=== PATIENT | female | born 1995 | race Caucasian/White ===

== ENCOUNTER 2017-09-12 12:17 | Emergency (ER) | payer SELFPAY ==
[2017-09-12 12:31] VITALS: BP 118/60; PULSE 76; O2SAT 100
--- NOTE | 2017-09-12 12:41 | ERPHSYRPT ---
- History of Present Illness Time Seen by Provider: 09/12/17 12:34 Source: patient Exam Limitations: no limitations Patient Subjective Stated Complaint: PT REPORTS HAVING A PRODUCTIVE COUGH BEGINNING LAST WEEK-STATES THAT SHE HAS OVERALL BODY ACHES-STATES THAT SHE FEELS SOB-PT IS 17 WKS Triage Nursing Assessment: PT PINK WARM ET [id number] IN COMPLETE SENTENCES WITH EASE-TALKATIVE WITH NO RETRACTIONS OR RESP DISTRESS NOTED-LUNGS CLEAR ET EQUAL BILATERALLY Physician History: 22-year-old white female arrives with complaint of a cough she states for several weeks worse for the past 3-4 days, feels short of breath at times she states she has a cough productive of dark sputum. She has no fevers. She does state that she aches all over. Patient states she is 17 weeks . Past medical history cardiomyopathy. Past surgical history includes . Social history patient denies tobacco use Timing/Duration: week(s) (symptoms for 3-4 weeks worse past 3-4 days) Severity: moderate Modifying Factors: Improves With: nothing Associated Symptoms: shortness of breath, cough, malaise, No nausea, No vomiting , No abdominal pain, No heartburn, No diaphoresis, No chills, No chest pain, No fever, No headaches, No loss of appetite, No rash, No syncope, No seizure, No weakness Allergies/Adverse Reactions: No Known Drug Allergies Allergy (Unverified 09/12/17 12:31) Home Medications: Alprazolam 0.5 mg [xanAX 0.5 MG] 0.5 mg PO UD 09/12/17 [History] Metoprolol Tartrate 50 mg [Lopressor 50 MG] 50 mg PO BID 09/12/17 [History ] Hx Tetanus, Diphtheria Vaccination/Date Given: Yes Hx Influenza Vaccination/Date Given: No Hx Pneumococcal Vaccination/Date Given: No Immunizations Up to Date: Yes - Review of Systems Constitutional: No Fever, No Chills Eyes: No Symptoms Ears, Nose, & Throat: No Symptoms, No Ear Pain, No Ear Discharge, No Hearing Changes, No Tinnitus, No Nose Pain, No Nose Congestion, No Nose Discharge, No Sinus Drainage, No Epistaxis, No Mouth Pain, No Mouth Swelling, No Loose Teeth, No Throat Pain, No Throat Swelling, No Hoarse, No Painful Swallowing, No Snoring Respiratory: Cough, Dyspnea Cardiac: No Chest Pain, No Edema, No Syncope Abdominal/Gastrointestinal: No Abdominal Pain, No Nausea, No Vomiting, No Diarrhea Genitourinary Symptoms: No Dysuria Musculoskeletal: Myalgias Skin: No Rash Neurological: No Dizziness, No Focal Weakness, No Sensory Changes Psychological: No Symptoms Endocrine: No Symptoms All Other Systems: Reviewed and Negative - Past Medical History Pertinent Past Medical History: Yes Cardiac History: Other - Past Surgical History Past Surgical History: Yes Female Surgical History: Section - Social History Smoking Status: Never smoker Exposure to second hand smoke: No Drug Use: none Patient Lives Alone: No - Female History Hx Now: Yes - Nursing Vital Signs Nursing Vital Signs: Initial Vital Signs Temperature 97.9 F 09/12/17 12:26 Pulse Rate 76 09/12/17 12:26 Respiratory Rate 20 09/12/17 12:26 Blood Pressure 118/60 09/12/17 12:26 O2 Sat by Pulse Oximetry 100 09/12/17 12:26 Pain Scale Pain Intensity 9 - Physical Exam General Appearance: no apparent distress, alert Eye Exam: PERRL/EOMI, eyes nml inspection Ears, Nose, Throat Exam: normal ENT inspection, TMs normal, pharynx normal, moist mucous membranes Neck Exam: normal inspection, non-tender, supple, full range of motion Respiratory Exam: normal breath sounds, lungs clear, No respiratory distress Cardiovascular Exam: regular rate/rhythm, normal heart sounds, normal peripheral pulses Gastrointestinal/Abdomen Exam: soft, normal bowel sounds, No tenderness, No mass Back Exam: normal inspection, normal range of motion, No CVA tenderness, No vertebral tenderness Extremity Exam: normal inspection, normal range of motion, pelvis stable Neurologic Exam: alert, oriented x 3, cooperative, big data lead II-XII nml as tested, normal mood/affect, nml cerebellar function, nml station & gait, sensation nml, No motor deficits Skin Exam: normal color, warm, dry, No rash Lymphatic Exam: No adenopathy SpO2 Interpretation: normal (100%) SpO2: 100 Oxygen Delivery: Room Air - Course Nursing assessment & vital signs reviewed: Yes EKG Interpreted by Me: RATE (63 bpm), Sinus Rhythm, NORMAL AXIS, Other (EKG: Sinus rhythm, 63 bpm, normal axis, no acute ST or T wave changes) Ordered Tests: Active Orders 24 hr Category Date Time Status EKG-ER Only STAT Care 09/12/17 12:37 Active Heart Tones-ED STAT Care 09/12/17 12:37 Active - Progress Progress: improved Progress Note: 09/12/17 12:53 22-year-old white female with history of cardiomyopathy who states that she is 17 weeks states that she's been having a cough productive of dark sputum symptoms for 3-4 weeks which has been worse past 3-4 days she states she has general myalgias no fevers no vomiting. On physical examination patient does not appear in this acute distress lungs are clear pulse oximetry is 100%. EKG normal sinus rhythm [address] or T wave changes normal axis. Fetall heart tones are checked by the patient's nurse in our 140. Will go ahead and place patient on Zithromax. She is to take plenty of fluids Tylenol every 4 hours as needed for pain follow- up with her family doctor or band manager. - Departure Time of Disposition: 12:55 Departure Disposition: Home Clinical Impression: Bronchitis Condition: Fair Critical Care Time: No Additional Instructions: Return home. Plenty of fluids. Tylenol every 4 hours as needed for pain. Zithromax Z-ADRIANO as directed. Follow-up with your band manager or family . Return for acute distress or for severe symptoms. Prescriptions: Azithromycin 250 mg [Zithromax 250 MG TABLET] 0 mg PO ZPACK #6 tablet
== END 2017-09-12 13:00 | disposition home or self-care (01) ==
LOC: ED 12:17
DX: J40 Bronchitis, not specified as acute or chronic (principal)
CPT/HCPCS: 93005; 99283

== ENCOUNTER 2020-10-03 19:49 | Emergency (ER) | payer OTHER ==
[2020-10-03 20:10] VITALS: O2SAT 98
--- NOTE | 2020-10-03 20:11 | ERPHSYRPT ---
- History of Present Illness Time Seen by Provider: 10/03/20 20:06 Source: patient Exam Limitations: no limitations Physician History: 25 yr old female with lac right radial wrist with pocket knife, tet reported UTD. she tried superglu at home but did not work , this was 2 hours ago; removed glue by RN using bacitracin. neurovasc and tendon fxn intact; nontender underlying bone. Occurred: just prior to arrival Method of Injury: incised Quality: constant Severity of Pain-Max: mild Severity of Pain-Current: mild Extremities Pain Location: wrist: right Modifying Factors: Improves With: movement Associated Symptoms: none Allergies/Adverse Reactions: No Known Drug Allergies Allergy (Unverified 09/12/17 12:31) Home Medications: Alprazolam [Xanax Xr] 1 mg PO DAILY 10/03/20 [History] Escitalopram Oxalate [Lexapro] 20 mg PO DAILY 10/03/20 [History] Lamotrigine 100 mg [lamICTAL 100MG TABLET] 100 mg PO DAILY 10/03/20 [History] Hx Tetanus, Diphtheria Vaccination/Date Given: Yes Hx Influenza Vaccination/Date Given: No Hx Pneumococcal Vaccination/Date Given: No - Review of Systems Constitutional: No Fever, No Chills Eyes: No Symptoms Ears, Nose, & Throat: No Symptoms Respiratory: No Cough, No Dyspnea Cardiac: No Chest Pain, No Edema, No Syncope Abdominal/Gastrointestinal: No Abdominal Pain, No Nausea, No Vomiting, No Diarrhea Genitourinary Symptoms: No Dysuria Musculoskeletal: No Back Pain, No Neck Pain Skin: Other (lac), No Rash Neurological: No Dizziness, No Focal Weakness, No Sensory Changes Psychological: No Symptoms Endocrine: No Symptoms Hematologic/Lymphatic: No Symptoms Immunological/Allergic: No Symptoms All Other Systems: Reviewed and Negative - Past Medical History Pertinent Past Medical History: Yes Cardiac History: Other - Past Surgical History Past Surgical History: Yes Female Surgical History: Section - Social History Smoking Status: Never smoker Exposure to second hand smoke: No Drug Use: none Patient Lives Alone: No - Nursing Vital Signs Nursing Vital Signs: Initial Vital Signs Temperature 97.0 F 10/03/20 19:56 Pulse Rate 82 10/03/20 19:56 Respiratory Rate 16 10/03/20 19:56 Blood Pressure 132/95 10/03/20 19:56 O2 Sat by Pulse Oximetry 98 10/03/20 19:56 Pain Scale Pain Intensity 1 - Physical Exam General Appearance: no apparent distress, alert Eyes, Ears, Nose, Throat Exam: moist mucous membranes Neck Exam: non-tender, supple Cardiovascular/Respiratory Exam: chest non-tender, normal breath sounds, regular rate/rhythm, no respiratory distress Abdominal Exam: non-tender, No guarding Back Exam: normal inspection, normal range of motion, No vertebral tenderness Shoulder Exam: normal inspection, non-tender, no evidence of injury, normal ROM Elbow/Forearm Exam: normal inspection, non-tender, no evidence of injury, normal ROM Wrist Exam: normal inspection, non-tender, normal ROM Hand Exam: normal inspection, non-tender, no evidence of injury, normal ROM DTR - Upper Extremity Exam: bicep (R): 2+, bicep (L): 2+, tricep (R): 2+, tricep (L): 2+ Neuro/Tendon Exam: normal sensation, normal motor functions, normal tendon functions Mental Status Exam: alert, oriented x 3, cooperative Skin Exam: normal color, warm, dry, laceration (right radial wrist) Procedures - Laceration/Wound Repair Right Wrist Wound Location: Right, wrist Wound Length (cm): 2 Wound's Depth, Shape: linear Wound Explored: super glue removed in prep Irrigated: Yes (50 cc NS ) Hibiclens Prep: Yes Anesthesia: local, 1% Lidocaine Volume Anesthetic (ccs): 3 Wound Debrided: minimal Wound Repaired With: sutures Suture Size/Type: 4-0, nylon Number of Sutures: 2 Layer Closure?: No Sterile Dressing Applied?: Yes Splint Applied?: No Sling Applied?: No - Course Nursing assessment & vital signs reviewed: Yes Ordered Tests: Active Orders 24 hr Category Date Time Status Sutures STAT Care 10/03/20 20:11 Active - Progress Progress: improved, re-examined Counseled pt/family regarding: diagnosis, need for follow-up - Departure Departure Disposition: Home Clinical Impression: Laceration Condition: Good Critical Care Time: No Referrals: KEILA ISABEL [Primary Care Provider] - Instructions: Laceration Repair With Stitches (DC) Additional Instructions: sutures may be removed by your in 10 days ; return meantime if any signs of infection or other concerns. followup your blood pressure also with , it was a little high on first presentation here , but may have been related to the event. Prescriptions: Mupirocin [Bactroban OINTMENT] 22 gm TP BID #1 tube
[2020-10-03 20:41] VITALS: BP 118/74; PULSE 74
== END 2020-10-03 20:41 | disposition home or self-care (01) ==
LOC: ED 19:49
DX: S61.511A Laceration without foreign body of right wrist, initial encounter (principal); W26.0XXA Contact with knife, initial encounter
CPT/HCPCS: 12001; 99283

== ENCOUNTER 2023-01-05 19:14 | Emergency (ER) | payer OTHER ==
--- NOTE | 2023-01-05 19:31 | ERPHSYRPT ---
- History of Present Illness Time Seen by Provider: 01/05/23 19:31 Source: patient Exam Limitations: no limitations Physician History: C/o abdominal pain x 2-3 weeks. Worse since pelvic exam at [facility]ERT[facility]IED [facility] TE[facility] office today. Location: RLQ Constant. Described as: sharp, stabbing Radiates to back Not associated w/ food, decreased appetite, +N/V Sexually active w/ one partner Started Ozempic in September, lost 50lbs since Denies hematuria, dysuria, increased frequency Timing/Duration: week(s) (3), worse Quality: sharp, stabbing Severity of Pain-Max: severe Severity of Pain-Current: severe Modifying Factors: Improves With: nothing. Worsens With: movement Associated Symptoms: nausea, vomiting, No fever, No chills Previous symptoms: no prior history Allergies/Adverse Reactions: codeine Adverse Reaction (Verified 01/05/23 19:25) Stomach Pain Home Medications: Alprazolam [Xanax Xr] 1 mg PO DAILY 10/03/20 [History] Escitalopram Oxalate [Lexapro] 20 mg PO DAILY 10/03/20 [History] Lamotrigine 100 mg [lamICTAL 100MG TABLET] 100 mg PO DAILY 10/03/20 [History] Cefdinir 300 mg PO BID 01/05/23 [History] Dapagliflozin Propanediol [Farxiga] 10 mg PO DAILY 01/05/23 [History] Meloxicam 7.5 mg PO DAILY 01/05/23 [History] Semaglutide [Ozempic] 1 mg SQ WEEKLY 01/05/23 [History] Hx Tetanus, Diphtheria Vaccination/Date Given: Yes Hx Influenza Vaccination/Date Given: No Hx Pneumococcal Vaccination/Date Given: No - Review of Systems Constitutional: Weight Loss (50), No Fever, No Chills Eyes: No Symptoms Ears, Nose, & Throat: No Symptoms Respiratory: No Symptoms Cardiac: No Symptoms Abdominal/Gastrointestinal: Abdominal Pain (RLQ), Nausea, Vomiting, Constipation, Appetite Changes, No Diarrhea, No Hematemesis, No Hematochezia Genitourinary Symptoms: No Dysuria, No Frequency, No Hematuria, No Menorrhagia, No , No Vaginal Bleeding, No Vaginal Discharge, No Vaginal Itching Musculoskeletal: No Symptoms Skin: No Symptoms Neurological: No Symptoms Psychological: No Symptoms - Past Medical History Pertinent Past Medical History: Yes Cardiac History: Other Psycho-Social History: Anxiety, Bipolar, Depression - Past Surgical History Past Surgical History: Yes Female Surgical History: Section Other Surgical History: cervical discectomy august 2020 - Social History Smoking Status: Never smoker Exposure to second hand smoke: No Drug Use: none Patient Lives Alone: No - Nursing Vital Signs Nursing Vital Signs: Initial Vital Signs Temperature 97.5 F 01/05/23 19:25 Pulse Rate 88 01/05/23 19:25 Respiratory Rate 14 01/05/23 19:25 Blood Pressure 107/70 01/05/23 19:25 O2 Sat by Pulse Oximetry 99 01/05/23 19:25 Pain Scale Pain Intensity 5 - Physical Exam General Appearance: moderate distress Eye Exam: eyes nml inspection Ears, Nose, Throat Exam: normal ENT inspection Neck Exam: normal inspection, non-tender, supple, full range of motion Respiratory Exam: normal breath sounds, lungs clear, airway intact, No respiratory distress Cardiovascular Exam: regular rate/rhythm, normal heart sounds, capillary refill <2 sec Gastrointestinal Exam: normal bowel sounds, tenderness (RLQ, + obturator sign, + psoas sign, neg Rovsing), guarding, rebound, No distention Back Exam: normal inspection, normal range of motion, CVA tenderness (right), No vertebral tenderness Extremity Exam: normal inspection, No pedal edema, No swelling Neurologic Exam: alert, oriented x 3, cooperative Skin Exam: normal color, warm, dry SpO2 Interpretation: normal O2 Delivery: Room Air - Course Nursing assessment & vital signs reviewed: Yes - CT Exams Abdomen/Pelvis CT Interpretation: Tele-radiologist Report, Normal Appendix, No appendicitis, Other (small hiatal hernia, colonic diverticulosis w/o diverticulitis) - Radiology Ultrasound Exam Pelvis Ultrasound: tele radiology report, negative, No Mass, No Torsion/Nml Flow Ordered Tests: Active Orders 24 hr Category Date Time Status IV Insertion STAT Care 01/05/23 19:41 Completed NPO (ED) STAT Care 01/05/23 19:41 Completed ABDOMEN AND PELVIS W/0 CONTRAS [CT] Stat Exams 01/05/23 19:41 Completed PELVIS TRANS VAGINAL [US] Stat Exams 01/05/23 19:44 Completed CBC W DIFF Stat Lab 01/05/23 20:00 Completed CMP Stat Lab 01/05/23 20:00 Completed CULTURE,URINE Stat Lab 01/05/23 19:24 Received HCG QUALITATIVE, URINE Stat Lab 01/05/23 Completed LIPASE Stat Lab 01/05/23 20:00 Completed Lactic Acid Stat Lab 01/05/23 19:56 Completed UA W/RFX UR CULTURE Stat Lab 01/05/23 19:24 Completed Medication Summary Discontinued Medications Generic Name Dose Route Start Last Admin Trade Name Sidney PRN Reason Stop Dose Admin Sodium Chloride 1,000 mls @ 999 mls/hr 01/05/23 19:41 01/05/23 21:05 Sodium Chloride 0.9% 1000 Ml IV 01/05/23 20:41 Infused .Q1H1M STA Infusion Sodium Chloride Confirm 01/05/23 19:58 Sodium Chloride 0.9% 1000 Ml Administered 01/05/23 19:59 Dose 1,000 mls @ ud .ROUTE .STK-MED ONE Ketorolac Tromethamine 30 mg 01/05/23 21:19 01/05/23 21:22 Ketorolac Tromethamine 30 Mg/Ml Inj IV 01/05/23 21:20 30 mg STAT ONE Administration Ketorolac Tromethamine Confirm 01/05/23 21:21 Ketorolac Tromethamine 30 Mg/Ml Inj Administered 01/05/23 21:22 Dose 30 mg .ROUTE .STK-MED ONE Morphine Sulfate 2 mg 01/05/23 19:41 01/05/23 20:03 Morphine Sulfate 2 Mg/Ml Inj IV 01/05/23 19:42 2 mg STAT ONE Administration Morphine Sulfate Confirm 01/05/23 19:58 Morphine Sulfate 2 Mg/Ml Inj Administered 01/05/23 19:59 Dose 2 mg .ROUTE .STK-MED ONE Lab/Rad Data: Laboratory Result Diagrams 01/05/23 20:00 01/05/23 20:00 Laboratory Results 01/05/23 01/05/23 01/05/23 Range/Units Unknown Unknown 20:00 WBC (4.0-10.5) x10^3/uL RBC (4.1-5.4) x10^6/uL Hgb (12.0-16.0) g/dL Hct (35-47) % MCV (78-100) fL MCH (26-32) pg MCHC (32-36) g/dL RDW (11.5-14.0) % Plt Count (150-450) x10^3/uL MPV (7.5-11.0) fL Gran % (36.0-66.0) % Immature Gran % (Auto) (0.00-0.4) % Nucleat RBC Rel Count (0.00-0.1) % Eos # (Auto) (0-0.5) x10^3/uL Immature Gran # (Auto) (0.00-0.03) x10^3u/L Absolute Lymphs (auto) (1.0-4.6) x10^3/uL Absolute Monos (auto) (0.0-1.3) x10^3/uL Absolute Nucleated RBC (0.00-0.01) x10^3u/L Lymphocytes % (24.0-44.0) % Monocytes % (0.0-12.0) % Eosinophils % (0.00-5.0) % Basophils % (0.0-0.4) % Absolute Granulocytes (1.4-6.9) x10^3/uL Basophils # (0-0.4) x10^3/uL Sodium 139 (137-145) mmol/L Potassium 3.8 (3.5-5.1) mmol/L Chloride 100 (98-107) mmol/L Carbon Dioxide 32 H (22-30) mmol/L Anion Gap 11.2 (5-15) MEQ/L BUN 11 (7-17) mg/dL Creatinine 0.82 (0.52-1.04) mg/dL Estimated GFR > 60.0 ML/MIN Glucose 89 (74-106) mg/dL Lactic Acid (0.4-2.0) Calcium 9.1 (8.4-10.2) mg/dL Total Bilirubin 0.30 (0.2-1.3) mg/dL AST 28 (14-36) U/L ALT 25 (0-35) U/L Alkaline Phosphatase 84 (38-126) U/L Serum Total Protein 7.4 (6.3-8.2) g/dL Albumin 4.2 (3.5-5.0) g/dL Lipase 55 (23-300) U/L Urine Color (Yellow) Urine Appearance (Clear) Urine pH (4.6-8.0) Ur Specific [place] (1.005-1.030) Urine Protein (Negative) Urine Glucose (UA) (Negative) mg/dL Urine Ketones (Negative) Urine Blood (Negative) Urine Nitrite (Negative) Urine Bilirubin (Negative) Urine Urobilinogen (0.2) mg/dL Ur Leukocyte Esterase (Negative) U Hyaline Cast (Auto) (0-2) /LPF Urine Microscopic RBC (0-5) /HPF Urine Microscopic WBC (0-5) /HPF Ur Epithelial Cells (None Seen) /HPF Urine Bacteria (None Seen) /HPF Urine Culture Reflexed (NO) Urine HCG, Qual NEGATIVE (NEGATIVE) Chlamydia DNA Probe NOT DETECTED (NEGATIVE) N.gonorrhoeae DNA Probe NOT DETECTED (NEGATIVE) 01/05/23 01/05/23 01/05/23 Range/Units 20:00 19:56 19:24 WBC 7.2 (4.0-10.5) x10^3/uL RBC 4.47 (4.1-5.4) x10^6/uL Hgb 13.1 (12.0-16.0) g/dL Hct 41.1 (35-47) % MCV 91.9 (78-100) fL MCH 29.3 (26-32) pg MCHC 31.9 L (32-36) g/dL RDW 12.7 (11.5-14.0) % Plt Count 278 (150-450) x10^3/uL MPV 10.8 (7.5-11.0) fL Gran % 59.7 (36.0-66.0) % Immature Gran % (Auto) 0.1 (0.00-0.4) % Nucleat RBC Rel Count 0.0 (0.00-0.1) % Eos # (Auto) 0.09 (0-0.5) x10^3/uL Immature Gran # (Auto) 0.01 (0.00-0.03) x10^3u/L Absolute Lymphs (auto) 2.20 (1.0-4.6) x10^3/uL Absolute Monos (auto) 0.54 (0.0-1.3) x10^3/uL Absolute Nucleated RBC 0.00 (0.00-0.01) x10^3u/L Lymphocytes % 30.6 (24.0-44.0) % Monocytes % 7.5 (0.0-12.0) % Eosinophils % 1.3 (0.00-5.0) % Basophils % 0.8 (0.0-0.4) % Absolute Granulocytes 4.28 (1.4-6.9) x10^3/uL Basophils # 0.06 (0-0.4) x10^3/uL Sodium (137-145) mmol/L Potassium (3.5-5.1) mmol/L Chloride (98-107) mmol/L Carbon Dioxide (22-30) mmol/L Anion Gap (5-15) MEQ/L BUN (7-17) mg/dL Creatinine (0.52-1.04) mg/dL Estimated GFR ML/MIN Glucose (74-106) mg/dL Lactic Acid 0.7 (0.4-2.0) Calcium (8.4-10.2) mg/dL Total Bilirubin (0.2-1.3) mg/dL AST (14-36) U/L ALT (0-35) U/L Alkaline Phosphatase (38-126) U/L Serum Total Protein (6.3-8.2) g/dL Albumin (3.5-5.0) g/dL Lipase (23-300) U/L Urine Color Dark Yellow A (Yellow) Urine Appearance Cloudy A (Clear) Urine pH 5.5 (4.6-8.0) Ur Specific [place] 1.025 (1.005-1.030) Urine Protein 30 (Negative) Urine Glucose (UA) Negative (Negative) mg/dL Urine Ketones Trace A (Negative) Urine Blood Large A (Negative) Urine Nitrite Negative (Negative) Urine Bilirubin Negative (Negative) Urine Urobilinogen 0.2 (0.2) mg/dL Ur Leukocyte Esterase Negative (Negative) U Hyaline Cast (Auto) NONE SEEN (0-2) /LPF Urine Microscopic RBC 0-2 (0-5) /HPF Urine Microscopic WBC 3-5 (0-5) /HPF Ur Epithelial Cells Few (None Seen) /HPF Urine Bacteria Moderate A (None Seen) /HPF Urine Culture Reflexed YES (NO) Urine HCG, Qual (NEGATIVE) Chlamydia DNA Probe (NEGATIVE) N.gonorrhoeae DNA Probe (NEGATIVE) - Progress Progress: improved, pain not gone completely Progress Note: US showed no ovaian torsion or cyst. CT abd/pelvis w/o showed no stones or appendicitis, but did show diverticulosis, fecal stasis and small hiatal hernia. Diverticulitis not r/o due to limitations of study w/o contrast. Her UA showed trace ketones and large blood w/ moderate bacteria and no LLe/nitrites. HCG neg. Decision was made to treat patient for diverticulitis w/ cipro and flagyl outpatient. Her urine will be sent for culture, if an organism resistant to cipro is cultured we will send additional abx. Advised patient to take Miralax QD for constipation. No evidence of pancreatitis secondary to GLP-1 on lab evaluation. Counseled pt/family regarding: lab results, diagnosis, need for follow-up, rad results Medical Desision Making - Diagnostic Testing Diagnostic test were ordered, analyzed, and reviewed by me: Yes Radiological Interpretation: Interpreted by me, Reviewed by me, Teleradiologist Report - Risk of complications The pt has a mod risk of morbidity or mortality based on: Need for prescription drug management - Departure Departure Disposition: Home Clinical Impression: Constipation, Hematuria, Diverticulitis large intestine Condition: Stable Critical Care Time: No Referrals: KEILA ISABEL [Primary Care Provider] - Follow up/PCP as directed Instructions: Diverticulitis Prescriptions: Ciprofloxacin HCl 500 mg PO BID 7 Days #14 tablet Metronidazole 500 mg [Flagyl 500 MG] 500 mg PO TID 7 Days #21 tablet Polyethylene Glycol 3350 17 gm [Miralax Powder 17GM PACKET] 17 gm PO DAILY #30 packet
[2023-01-05] MEDS ORDERED: MORPHINE SULFATE 2 MG INJ IV ONE (19:41)
[2023-01-05] MEDS ORDERED: Sodium Chloride 0.9% 1000 ML 1,000 ML IV STA (19:41)
[2023-01-05 19:48] LABS: HCG URINE TEST NEGATIVE (NEGATIVE)
[2023-01-05 19:58] LABS: Appearance Cloudy (Clear); Bilirubin Negative (Negative); Blood Large (Negative); Glucose, Urine Negative (Negative); Hyaline Casts NONE SEEN /LPF (0-2); Ketones Trace (Negative); Leukocyte Esterase Negative (Negative); Nitrite Negative (Negative); Ph 5.5 (4.6-8.0); Protein,Urine Dip 30 (Negative); Specific Gravity 1.025 (1.005-1.030); Urobilinogen 0.2 mg/dL (0.2)
[2023-01-05] MEDS ORDERED: Sodium Chloride 0.9% 1000 ML 1,000 ML ONE (19:58)
[2023-01-05] MEDS ORDERED: MORPHINE SULFATE 2 MG INJ ONE (19:58)
[2023-01-05 19:59] LABS: ADD URINE CULTURE? YES (NO); Bacteria Moderate /HPF (None Seen); Epithelial Cells Few /HPF (None Seen); RBC 0-2 /HPF (0-5)
[2023-01-05 20:09] LABS: Absolute Neutrophil Ct (ANC) 4.28 x10^3/uL (1.4-6.9); BASOPHIL % 0.8 % (0.0-0.4); Basophil (Absolute #) 0.06 x10^3/uL (0-0.4); Eosinophil % 1.3 % (0.00-5.0); Eosinophil (Absolute #) 0.09 x10^3/uL (0-0.5); Hematocrit 41.1 % (35-47); Hemoglobin 13.1 g/dL (12.0-16.0); IMMATURE GRAN # 0.01 x10^3u/L (0.00-0.03); IMMATURE GRAN % 0.1 % (0.00-0.4); Lymphocytes % 30.6 % (24.0-44.0); Mean Cell Volume 91.9 fL (78-100); Mean Corpuscular Hemoglobin 29.3 pg (26-32); Mean Corpuscular Hgb Concent. 31.9 g/dL (32-36); Mean Platelet Volume 10.8 fL (7.5-11.0); Monocyte (Absolute #) 0.54 x10^3/uL (0.0-1.3); Monocytes % 7.5 % (0.0-12.0); Neutrophil % 59.7 % (36.0-66.0); Platelet Count 278 x10^3/uL (150-450); Red Blood Count 4.47 x10^6/uL (4.1-5.4); Red Cell Distribution Width 12.7 % (11.5-14.0); White Blood Count 7.2 x10^3/uL (4.0-10.5)
[2023-01-05 20:25] LABS: ALBUMIN 4.2 g/dL (3.5-5.0); ALKALINE PHOSPHATASE 84 U/L (38-126); ANION GAP 11.2 MEQ/L (5-15); BLOOD UREA NITROGEN 11 mg/dL (7-17); CHLORIDE 100 mmol/L (98-107); Calcium 9.1 mg/dL (8.4-10.2); Carbon Dioxide 32 mmol/L (22-30); Creatinine 1 0.82 mg/dL (0.52-1.04); EST GLOMERULAR FILTRATION RATE > 60.0 ML/MIN; Glucose 89 mg/dL (74-106); LIPASE 55 U/L (23-300); Potassium 3.8 mmol/L (3.5-5.1); SGOT/AST 28 U/L (14-36); SGPT/ALT 25 U/L (0-35); SODIUM 139 mmol/L (137-145); Total Protein 7.4 g/dL (6.3-8.2)
--- NOTE | 2023-01-05 20:52 | XRAY ---
Indication: Right lower quadrant pain. Multiple contiguous axial images obtained through the abdomen and pelvis without contrast. Comparison: None Lung bases demonstrates tiny right effusion. No infiltrate. Heart not enlarged. Small hiatal hernia. Noncontrasted stomach and bowel loops appear nonobstructed with normal appendix. Minimal scattered colonic diverticulosis without diverticulitis. No free fluid/air. Remaining liver, gallbladder, pancreas, spleen, adrenal glands, kidneys, ureters, bladder, uterus, and aorta are unremarkable for noncontrast exam. Osseous structures intact. No ventral or inguinal hernias. Impression: 1. Tiny nonspecific right effusion, small hiatal hernia, and colonic diverticulosis. 2. Remaining CT abdomen/pelvis without contrast exam is negative.
[2023-01-05 21:19] LABS: CHLAMYDIA DNA NOT DETECTED (NEGATIVE); GC DNA Probe NOT DETECTED (NEGATIVE)
[2023-01-05] MEDS ORDERED: TORAdol 30 mg Injection IV ONE (21:19)
[2023-01-05] MEDS ORDERED: TORAdol 30 mg Injection ONE (21:21)
[2023-01-05 21:49] VITALS: BP 116/75; PULSE 84; O2SAT 98
--- NOTE | 2023-01-05 21:54 | XRAY ---
Indication: Right pelvic pain. Two-dimensional transvaginal pelvic sonogram performed. Comparison: None Uterus anteverted measuring 7.8 x 4.1 x 3.3 cm. Lower uterine segments demonstrates a few tiny nabothian cysts largest 4 mm. Endometrial stripe measures 3.3 mm. No endometrial cavity mass or fluid collection. Right ovary measures 3.8 x 2.5 x 3.2 cm and the left measures 2.4 x 2.1 x 1.9 cm. Normal perfusion and folliculus cysts bilaterally. No suspicious adnexal mass or free fluid. Impression: Tiny nabothian cysts. Remaining transvaginal pelvic sonogram is negative. Comment: Preliminary report was given.
== END 2023-01-05 21:53 | disposition home or self-care (01) ==
LOC: ED 19:14
DX: K59.00 Constipation, unspecified (principal); K57.32 Diverticulitis of large intestine without perforation or abscess without bleeding; R31.9 Hematuria, unspecified; R10.31 Right lower quadrant pain; R11.2 Nausea with vomiting, unspecified; Z79.84 Long term (current) use of oral hypoglycemic drugs; Z79.85 Long-term (current) use of injectable non-insulin antidiabetic drugs; Z79.899 Other long term (current) drug therapy
CPT/HCPCS: 36000; 36415; 74176; 76830; 80053; 81001; 81025; 83605; 83690; 85025; 87086; 87491; 87591; 96374; 96375; 99284; J1885; J2270

== ENCOUNTER 2024-02-29 18:12 | Emergency (ER) | payer OTHER ==
[2024-02-29 18:46] LABS: BASOPHIL % 0.5 % (0.1-1.2); Basophil (Absolute #) 0.03 x10^3/uL (0.01-0.08); Eosinophil % 1.9 % (0.7-5.8); Eosinophil (Absolute #) 0.12 x10^3/uL (0.04-0.36); Hematocrit 38.9 % (34.1-44.9); Hemoglobin 12.8 g/dL (11.2-15.7); IMMATURE GRAN # 0.01 x10^3u/L (0.001-0.031); IMMATURE GRAN % 0.2 % (0.001-0.429); Lymphocyte (Absolute #) 1.98 x10^3/uL (1.18-3.74); Lymphocytes % 31.3 % (19.3-51.7); Mean Corpuscular Hemoglobin 30.3 pg (25.6-32.2); Mean Corpuscular Hgb Concent. 32.9 g/dL (32.2-35.5); Mean Platelet Volume 10.5 fL (9.4-12.3); Monocyte (Absolute #) 0.58 x10^3/uL (0.24-0.86); Monocytes % 9.2 % (4.7-12.5); Neutrophil % 56.9 % (34.0-71.1); Platelet Count 248 x10^3/uL (182-369); Red Blood Count 4.23 x10^6/uL (3.93-5.22); Red Cell Distribution Width 12.8 % (11.7-14.4); White Blood Count 6.3 x10^3/uL (3.98-10.04)
[2024-02-29 18:48] VITALS: TEMP 98.4
[2024-02-29] MEDS ORDERED: Sodium Chloride 0.9% 1000 ML 1,000 ML ONE (18:57)
[2024-02-29] MEDS ORDERED: Hydromorphone 1 mg/ml Injection ONE (18:57)
[2024-02-29] MEDS ORDERED: Zofran 4 MG/2 ML VIAL ONE (18:57)
[2024-02-29 18:58] LABS: ALBUMIN 4.1 g/dL (3.5-5.0); ANION GAP 9.8 MEQ/L (5-15); BILIRUBIN,TOTAL 0.2 mg/dL (0.2-1.3); Creatinine 1 0.68 mg/dL (0.52-1.04); EST GLOMERULAR FILTRATION RATE 122.3 ML/MIN; Potassium 3.7 mmol/L (3.5-5.1); Total Protein 6.8 g/dL (6.3-8.2)
[2024-02-29 19:00] LABS: HCG SERUM TEST NEGATIVE (NEGATIVE)
[2024-02-29] MEDS: Sodium Chloride 0.9% 1000 ML 1,000 ML IV STA (19:00)
[2024-02-29] MEDS: Zofran 4 MG/2 ML VIAL IV ONE (19:01)
[2024-02-29] MEDS: Hydromorphone 1 mg/ml Injection IV ONE (19:05)
--- NOTE | 2024-02-29 19:06 | ERPHSYRPT ---
- History of Present Illness Source: patient Exam Limitations: no limitations Patient Subjective Stated Complaint: C/O right sided abdominal pain that started on Sunday Triage Nursing Assessment: Patient ambulated back to ER. She is alert and oriented. Skin tone normal. Abdomen is distended. Right side tender with palpation. Hx Tetanus, Diphtheria Vaccination/Date Given: Yes Hx Influenza Vaccination/Date Given: No Hx Pneumococcal Vaccination/Date Given: No Immunizations Up to Date: Yes <DEBORAH PRINCE - Last Filed: 02/29/24 19:11> <RUTHANN WEBER - Last Filed: 02/29/24 21:26> - History of Present Illness Time Seen by Provider: 02/29/24 18:34 Physician History: Patient is here with lower abdominal pain. Abdominal swelling. Has been going on for 3 days. Has been taking [id number] medication at home. Patient does have her tubes tied. No falls or trauma. Patient states that she does not drink alcohol. They have 3 children together. She is here with her . (DEBORAH PRINCE) Allergies/Adverse Reactions: codeine Adverse Reaction (Verified 02/29/24 18:25) Stomach Pain Home Medications: ALPRAZolam [Xanax Xr] 1 mg PO DAILY 10/03/20 [History] Escitalopram Oxalate [Lexapro] 20 mg PO DAILY 10/03/20 [History] Lamotrigine 100 mg [lamICTAL 100MG TABLET] 100 mg PO DAILY 10/03/20 [H istory] Dapagliflozin Propanediol [Farxiga] 10 mg PO DAILY 01/05/23 [History] Meloxicam 7.5 mg PO DAILY 01/05/23 [History] Travel Risk - International Travel Have you traveled outside of the country in past 3 weeks: No - Emerging Infectious Disease Are you exhibiting symptoms associated with any current EIDs: Yes Symptoms: Abdominal Pain, Vomitting <DEBORAH PRINCE - Last Filed: 02/29/24 19:11> - Past Medical History Pertinent Past Medical History: Yes Cardiac History: Other Psycho-Social History: Anxiety, Bipolar, Depression - Past Surgical History Past Surgical History: Yes Female Surgical History: Section Other Surgical History: cervical discectomy august 2020 - Female History Hx Now: No - Social History Smoking Status: Never smoker Exposure to second hand smoke: No Drug Use: none Patient Lives Alone: No - Social Determinants of Health Will the patient participate in the screening: Yes Do you worry about a steady place to live?: No Do you have any problems with any of the following?: No known problems In the past 12 months,have you had to go without utilities?: No Transportation Issues: No Has anyone in your support network made you feel unsafe?: No Have you or anyone in your house had to go without enough: No <DEBORAH PRINCE - Last Filed: 02/29/24 19:11> - Physical Exam SpO2 Interpretation: normal SpO2: 100 <DEBORAH PRINCE - Last Filed: 02/29/24 19:11> - Nursing Vital Signs Nursing Vital Signs: Initial Vital Signs Temperature 98.4 F 02/29/24 18:29 Pulse Rate 79 02/29/24 18:29 Respiratory Rate 18 02/29/24 18:29 Blood Pressure 127/93 02/29/24 18:29 O2 Sat by Pulse Oximetry 100 02/29/24 18:29 Pain Scale Pain Intensity 6 - Physical Exam Comments: 02/29/24 19:12 Review of Systems Constitutional: Negative for fever. HENT: Negative for congestion. Respiratory: Negative for shortness of breath. Cardiovascular: Negative for chest pain. Gastrointestinal: Abdominal pain Genitourinary: Negative for dysuria. Musculoskeletal: Negative for back pain. Skin: Negative for rash. Neurological: Negative for headaches. Psychiatric/Behavioral: Negative for behavioral problems. All other systems reviewed and are negative. Physical Exam Vitals signs and nursing note reviewed. Constitutional: Appearance: Patient is well-developed. HENT: Head: Normocephalic and atraumatic. Eyes: Conjunctiva/sclera: Conjunctivae normal. Neck: Musculoskeletal: Normal range of motion. Trachea: No tracheal deviation. Cardiovascular: Rate and Rhythm: Normal rate. Pulmonary: Effort: Pulmonary effort is normal. No respiratory distress. Abdominal: Palpations: Abdomen is soft. Abdominal tenderness without rebound or guarding Musculoskeletal: General: No deformity. Skin: General: Skin is warm and dry. Neurological/ Psychiatric: Mental Status: Mental status, behavior, interaction with environment is appropriate for patient's age and condition (DEBORAH PRINCE) - Course Nursing assessment & vital signs reviewed: Yes <DEBORAH PRINCE - Last Filed: 02/29/24 19:11> Ordered Tests: Active Orders 24 hr Category Date Time Status IV Insertion STAT Care 02/29/24 18:34 Active ABDOMEN AND PELVIS W CONTRAST [CT] Stat Exams 02/29/24 18:34 Taken CBC W DIFF Stat Lab 02/29/24 18:35 Completed CMP Stat Lab 02/29/24 18:35 Completed HCG QUALITATIVE, SERUM Stat Lab 02/29/24 18:35 Completed LIPASE Stat Lab 02/29/24 18:35 Completed UA W/RFX UR CULTURE Stat Lab 02/29/24 20:00 Completed Medication Summary Discontinued Medications Generic Name Dose Route Start Last Admin Trade Name Freq PRN Reason Stop Dose Admin Hydromorphone HCl 1 mg 02/29/24 18:34 02/29/24 19:05 Hydromorphone 1 Mg/1ml Inj IV 02/29/24 18:35 1 mg STAT ONE Administration Hydromorphone HCl Confirm 02/29/24 18:57 Hydromorphone 1 Mg/1ml Inj Administered 02/29/24 18:58 Dose 1 mg .ROUTE .STK-MED ONE Sodium Chloride 1,000 mls @ 999 mls/hr 02/29/24 18:34 02/29/24 21:23 Sodium Chloride 0.9% 1000 Ml IV 02/29/24 19:34 Infused .Q1H1M STA Infusion Sodium Chloride Confirm 02/29/24 18:57 Sodium Chloride 0.9% 1000 Ml Administered 02/29/24 18:58 Dose 1,000 mls @ ud .ROUTE .STK-MED ONE Ondansetron HCl 4 mg 02/29/24 18:34 02/29/24 19:01 Ondansetron Hcl 4 Mg/2 Ml Vial IV 02/29/24 18:35 4 mg STAT ONE Administration Ondansetron HCl Confirm 02/29/24 18:57 Ondansetron Hcl 4 Mg/2 Ml Vial Administered 02/29/24 18:58 Dose 4 mg .ROUTE .STK-MED ONE Lab/Rad Data: Laboratory Result Diagrams 02/29/24 18:35 02/29/24 18:35 Laboratory Results 02/29/24 02/29/24 02/29/24 Range/Units 20:00 18:35 18:35 WBC (3.98-10.04) x10^3/uL RBC (3.93-5.22) x10^6/uL Hgb (11.2-15.7) g/dL Hct (34.1-44.9) % MCV (79.4-94.8) fL MCH (25.6-32.2) pg MCHC (32.2-35.5) g/dL RDW (11.7-14.4) % Plt Count (182-369) x10^3/uL MPV (9.4-12.3) fL Gran % (34.0-71.1) % Immature Gran % (Auto) (0.001-0.429) % Nucleat RBC Rel Count (0.00-0.2) % Eos # (Auto) (0.04-0.36) x10^3/uL Immature Gran # (Auto) (0.001-0.031) x10^3u/L Absolute Lymphs (auto) (1.18-3.74) x10^3/uL Absolute Monos (auto) (0.24-0.86) x10^3/uL Absolute Nucleated RBC (0.00-0.012) x10^3u/L Lymphocytes % (19.3-51.7) % Monocytes % (4.7-12.5) % Eosinophils % (0.7-5.8) % Basophils % (0.1-1.2) % Absolute Granulocytes (1.56-6.13) x10^3/uL Basophils # (0.01-0.08) x10^3/uL Sodium 139 (135-145) mmol/L Potassium 3.7 (3.5-5.1) mmol/L Chloride 104 (98-107) mmol/L Carbon Dioxide 29 (22-30) mmol/L Anion Gap 9.8 (5-15) MEQ/L BUN 12 (7-17) mg/dL Creatinine 0.68 (0.52-1.04) mg/dL Estimated GFR 122.3 ML/MIN Glucose 91 (74-106) mg/dL Calcium 9.0 (8.4-10.2) mg/dL Total Bilirubin 0.20 (0.2-1.3) mg/dL AST 37 H (14-36) U/L ALT 37 H (0-35) U/L Alkaline Phosphatase 87 (38-126) U/L Serum Total Protein 6.8 (6.3-8.2) g/dL Albumin 4.1 (3.5-5.0) g/dL Lipase 69 (23-300) U/L Serum HCG, Qual NEGATIVE (NEGATIVE) Urine Color Yellow (Yellow) Urine Appearance Clear (Clear) Urine pH 6.5 (4.6-8.0) Ur Specific [place] >=1.030 A (1.005-1.030) Urine Protein Negative (Negative) Urine Glucose (UA) Negative (Negative) mg/dL Urine Ketones Negative (Negative) Urine Blood Negative (Negative) Urine Nitrite Negative (Negative) Urine Bilirubin Negative (Negative) Urine Urobilinogen 0.2 (0.2) mg/dL Ur Leukocyte Esterase Negative (Negative) U Hyaline Cast (Auto) NONE SEEN (0-2) /LPF Urine Microscopic RBC 0-2 (0-5) /HPF Urine Microscopic WBC 0-2 (0-5) /HPF Ur Epithelial Cells None Seen (None Seen) /HPF Urine Bacteria None Seen (None Seen) /HPF Urine Culture Reflexed NO (NO) 02/29/24 Range/Units 18:35 WBC 6.3 (3.98-10.04) x10^3/uL RBC 4.23 (3.93-5.22) x10^6/uL Hgb 12.8 (11.2-15.7) g/dL Hct 38.9 (34.1-44.9) % MCV 92.0 (79.4-94.8) fL MCH 30.3 (25.6-32.2) pg MCHC 32.9 (32.2-35.5) g/dL RDW 12.8 (11.7-14.4) % Plt Count 248 (182-369) x10^3/uL MPV 10.5 (9.4-12.3) fL Gran % 56.9 (34.0-71.1) % Immature Gran % (Auto) 0.2 (0.001-0.429) % Nucleat RBC Rel Count 0.0 (0.00-0.2) % Eos # (Auto) 0.12 (0.04-0.36) x10^3/uL Immature Gran # (Auto) 0.01 (0.001-0.031) x10^3u/L Absolute Lymphs (auto) 1.98 (1.18-3.74) x10^3/uL Absolute Monos (auto) 0.58 (0.24-0.86) x10^3/uL Absolute Nucleated RBC 0.00 (0.00-0.012) x10^3u/L Lymphocytes % 31.3 (19.3-51.7) % Monocytes % 9.2 (4.7-12.5) % Eosinophils % 1.9 (0.7-5.8) % Basophils % 0.5 (0.1-1.2) % Absolute Granulocytes 3.60 (1.56-6.13) x10^3/uL Basophils # 0.03 (0.01-0.08) x10^3/uL Sodium (135-145) mmol/L Potassium (3.5-5.1) mmol/L Chloride (98-107) mmol/L Carbon Dioxide (22-30) mmol/L Anion Gap (5-15) MEQ/L BUN (7-17) mg/dL Creatinine (0.52-1.04) mg/dL Estimated GFR ML/MIN Glucose (74-106) mg/dL Calcium (8.4-10.2) mg/dL Total Bilirubin (0.2-1.3) mg/dL AST (14-36) U/L ALT (0-35) U/L Alkaline Phosphatase (38-126) U/L Serum Total Protein (6.3-8.2) g/dL Albumin (3.5-5.0) g/dL Lipase (23-300) U/L Serum HCG, Qual (NEGATIVE) Urine Color (Yellow) Urine Appearance (Clear) Urine pH (4.6-8.0) Ur Specific [place] (1.005-1.030) Urine Protein (Negative) Urine Glucose (UA) (Negative) mg/dL Urine Ketones (Negative) Urine Blood (Negative) Urine Nitrite (Negative) Urine Bilirubin (Negative) Urine Urobilinogen (0.2) mg/dL Ur Leukocyte Esterase (Negative) U Hyaline Cast (Auto) (0-2) /LPF Urine Microscopic RBC (0-5) /HPF Urine Microscopic WBC (0-5) /HPF Ur Epithelial Cells (None Seen) /HPF Urine Bacteria (None Seen) /HPF Urine Culture Reflexed (NO) - Progress Progress: improved Counseled pt/family regarding: lab results, diagnosis, need for follow-up <DEBORAH PRINCE - Last Filed: 02/29/24 19:11> - Progress Progress: re-examined Counseled pt/family regarding: rad results <RUTHANN WEBER - Last Filed: 02/29/24 21:26> - Progress Progress Note: 02/29/24 19:12 Differential diagnosis includes kidney stone, compression fracture, infection, UTI, triple AAA - basic labs including: CBC, lipase, CMP, UA, urine test - insert IV for symptom management - consider imaging: CT ab/pelvis or U/S (DEBORAH PRINCE) 02/29/24 21:24 patient is checked out to me at shift change from Dr. Prince with pending workup including CT abdomen pelvis. Patient has normal white count, fairly unremarkable chemistries, CT abdomen pelvis is negative for any acute infectious/inflammatory process. No obstruction, stones but does have some element of constipation. I have shared the results of workup with patient and family. During my evaluation she is feeling much better. No peritoneal signs during my evaluation. Patient is advised to take MiraLAX and stool softener daily and take Tylenol ibuprofen as needed and outpatient follow-up. Discussed signs symptoms of worsening needing return to ER which she seems understanding. Stable for discharge. (RUTHANN WEBER) Medical Desision Making - Diagnostic Testing Diagnostic test were ordered, analyzed, and reviewed by me: Yes Radiological Interpretation: Reviewed by me, Teleradiologist Report - Risk of complications The pt has a mod risk of morbidity or mortality based on: Need for prescription drug management <RUTHANN WEBER - Last Filed: 02/29/24 21:26> - Departure Critical Care Time: No <DEBORAH PRINCE - Last Filed: 02/29/24 19:11> - Departure Departure Disposition: Home <RUTHANN WEBER - Last Filed: 02/29/24 21:26> - Departure Clinical Impression: Abdominal pain, Constipation Condition: Stable Referrals: KEILA ISABEL [Primary Care Provider] - Follow up/PCP as directed Instructions: Abdominal pain, Constipation in adults Additional Instructions: Take daily stool softener and MiraLAX. Take Tylenol/ibuprofen as needed. Follow-up with primary care for reevaluation. Return to ER for any worsening. Prescriptions: Polyethylene Glycol 3350 17 gm [Miralax Powder 17GM PACKET] 17 gm PO DAILY #30 packet
[2024-02-29 20:14] LABS: Appearance Clear (Clear); Bacteria None Seen /HPF (None Seen); Bilirubin Negative (Negative); Blood Negative (Negative); Epithelial Cells None Seen /HPF (None Seen); Glucose, Urine Negative (Negative); Hyaline Casts NONE SEEN /LPF (0-2); Ketones Negative (Negative); Leukocyte Esterase Negative (Negative); Nitrite Negative (Negative); Ph 6.5 (4.6-8.0); Protein,Urine Dip Negative (Negative); RBC 0-2 /HPF (0-5); Specific Gravity >=1.030 (1.005-1.030); Urobilinogen 0.2 mg/dL (0.2); WBC 0-2 /HPF (0-5)
[2024-02-29 20:20] LABS: ADD URINE CULTURE? NO (NO)
[2024-02-29 21:32] VITALS: PULSE 75; O2SAT 98
[2024-02-29 21:43] VITALS: BP 108/76; RESP 17
--- NOTE | 2024-03-01 08:03 | XRAY ---
Indication: Abdominal swelling. Multiple contiguous axial images obtained through the abdomen and pelvis using 80 cc Isovue 370 contrast. Comparison: January 05, 2023 Lung bases now clear. Heart not enlarged. Noncontrasted stomach and bowel loops appear nonobstructed. A few jejunal bowel loops demonstrates circumferential wall thickening, possible enteritis in right clinical setting. Again normal appendix. New mild diffuse colonic fecal debris. No free fluid/air. Remaining liver, gallbladder, pancreas, spleen, adrenal glands, kidneys, ureters, bladder, uterus, and aorta are unremarkable. No pathologic retroperitoneal lymphadenopathy. Osseous structures intact with now mild levoscoliosis centered at L2. Impression: 1. Jejunal bowel wall thickening. Rule out enteritis. 2. Incidental mild diffuse fecal stasis and levoscoliosis. 3. Remaining CT abdomen/pelvis with contrast exam is negative.
== END 2024-02-29 21:43 | disposition home or self-care (01) ==
LOC: ED 18:12
DX: K59.00 Constipation, unspecified (principal); R10.30 Lower abdominal pain, unspecified; Z79.84 Long term (current) use of oral hypoglycemic drugs; Z79.899 Other long term (current) drug therapy
CPT/HCPCS: 36000; 36415; 74177; 80053; 81001; 83690; 84703; 85025; 96360; 96374; 96375; 99284; J1170; J2405